=== PATIENT | male | born 1955 | race Two or more races ===

== ENCOUNTER 2017-04-10 21:01 | Inpatient (IN) | payer MEDICARE, OTHER ==
[~2017-04-10] VITALS: Ht 182.9 cm; Wt 93.9 kg
--- NOTE | 2017-04-10 21:05 | NUR ---
TO BED 11 A 62 YO MALE PATIENT BB RA; CHEST PRESSURE X8 HRS. ADMITS TO ETOH DRINKING. NITRO X1 AND 162 ASA GIVEN BY EMS. PATIENT IS ALERT AND RESPONSIVE, PLACED ON CARDIAC AND VS MONITORING. GOWNED. COMFORT AND SAFETY MEASURES RENDERED.
[2017-04-10] MEDS ORDERED: ASPIRIN 325 MG TABLET ONE (21:16)
[2017-04-10 21:20] LABS: BASOPHILS % (AUTO) 0.5 % (0.0-2.0); EOSINOPHILS # (AUTO) 0.2 /CMM (0.0-0.7); EOSINOPHILS % (AUTO) 2.3 % (0.0-6.0); HEMATOCRIT 47 % (39-51); LYMPHOCYTES # (AUTO) 3.4 /CMM (0.8-4.8); MEAN CORPUSCULAR HEMOGLOBIN 31 PG (26.0-33.0); MEAN CORPUSCULAR HGB CONC 34 g/dl (31.0-36.0); MEAN CORPUSCULAR VOLUME 90 fL (80-96); MONOCYTES # (AUTO) 0.5 /CMM (0.1-1.30); MONOCYTES % (AUTO) 5.4 % (2.0-12.0); NEUTROPHILS # (AUTO) 5.2 /CMM (1.8-8.9); NEUTROPHILS % (AUTO) 54.8 % (43.0-81.0); PLATELET COUNT (AUTO) 302 /CMM (150-450); RED BLOOD CELL COUNT(AUTO) 5.18 MIL/uL (4.5-6.0); WHITE BLOOD COUNT (AUTO) 9.3 K/uL (4.3-11.0)
[2017-04-10 21:28] LABS: CALCIUM, SERUM 8.9 mg/dL (8.5-10.1); CARBON DIOXIDE 26 mmol/L (21-32); CHLORIDE 100 mmol/L (98-107); GLUCOSE 279 mg/dL (74-106); POTASSIUM 3.4 mmol/L (3.5-5.1); SODIUM SERUM 136 mmol/L (136-145); UREA NITROGEN, BLOOD 5 mg/dL (7-18)
[2017-04-10] MEDS ORDERED: ASPIRIN 325 MG TABLET PO ONE (21:30)
[2017-04-10 21:32] LABS: INR 0.91 (0.87-1.13); PROTHROMBIN TIME 9.5 SECS (9.5-12.7)
[2017-04-10 21:37] LABS: TROPONIN I < 0.017 ng/mL (0.00-0.056)
--- NOTE | 2017-04-10 23:15 | NUR ---
EPIC PAGED FOR PANEL CALL
--- NOTE | 2017-04-10 23:34 | NUR ---
REPORT GIVEN TO DEDE GREER FOR ADMISSION AND DWAINE.
--- NOTE | 2017-04-10 23:40 | NUR ---
CENTRAL SUPPLY TECHNICIAN SUPERVISOR ADMIN NOTES PT ARRIVED TO FLOOR VIA GURNEY, WAS ABLE TO AMBULATE TO BED. A/O X3, ABLE TO MAKE NEEDS KNOWN. RWANDAN SPEAKING, UNDERSTANDS SOME FRENCH. PT IS BREATHING EVENLY AND UNLABORED ON RA, NO SIGNS OF SOB OR DISTRESS. DENIES PAIN AT THIS TIME. PT STATES HE TAKES SOME MEDICATIONS AND WILL HAVE SOMEONE BRING THEM TOMORROW. RIGHT FOOT EDEMA NOTED +1, BILATERAL BOTTOM FOOT DRYNESS. PT ORIENTED TO ROOM, URINAL WAS GIVE. AWAITING ORDERS FROM MD. BED IS IN LOW AND LOCKED POSITION, CALL LIGHT WITHIN REACH. WILL CONTINUE TO MONITOR PT.
--- NOTE | 2017-04-10 23:42 | NUR ---
TRANSFERRED PATIENT TO TELE BED 322-2 VIA ALS PROTOCOL, NO INCIDENT NOTED.
[2017-04-11] VITALS (7 sets, daily range): BP systolic 103–135; BP diastolic 63–77
[2017-04-11] MEDS ORDERED: ZOLPIDEM TARTRATE 5 MG TABLET PO PRN (01:00)
[2017-04-11] MEDS ORDERED: ACETAMINOPHEN 325 MG TABLET PO PRN (01:00)
[2017-04-11] MEDS ORDERED: ONDANSETRON HCL/PF 4 MG/2 ML VIAL IVP PRN (01:00)
[2017-04-11] MEDS ORDERED: POTASSIUM CHLORIDE 20 MEQ TAB.PRT.SR PO ONE ×2 (01:00→01:10)
[2017-04-11] MEDS ORDERED: MAGNESIUM HYDROXIDE 30 ML UDC PO PRN (01:00)
[2017-04-11] MEDS ORDERED: DEXTROSE 50%-WATER 50 ML DISP.SYRIN IV PRN (01:00)
[2017-04-11] MEDS ORDERED: Z GUARD REMEDY 2 OZ OINT TP PRN (01:00)
[2017-04-11] MEDS ORDERED: HYDROCODONE/APAP 5/325MG 1 EACH TABLET PO PRN (01:00)
[2017-04-11] MEDS ORDERED: ENOXAPARIN SODIUM 40 MG/0.4 ML DISP.SYRIN SQ ONE (01:11)
[2017-04-11] MEDS: ENOXAPARIN SODIUM 40 MG/0.4 ML DISP.SYRIN SQ SCH (01:48)
[2017-04-11 04:19] LABS: BASOPHILS % (AUTO) 0.2 % (0.0-2.0); EOSINOPHILS # (AUTO) 0.2 /CMM (0.0-0.7); EOSINOPHILS % (AUTO) 2.8 % (0.0-6.0); HEMATOCRIT 43 % (39-51); HEMOGLOBIN 14.8 g/dL (13.5-17.5); LYMPHOCYTES # (AUTO) 2.3 /CMM (0.8-4.8); LYMPHOCYTES % (AUTO) 34.5 % (20.0-44.0); MEAN CORPUSCULAR HEMOGLOBIN 32 PG (26.0-33.0); MEAN CORPUSCULAR HGB CONC 35 g/dl (31.0-36.0); MEAN CORPUSCULAR VOLUME 92 fL (80-96); MONOCYTES # (AUTO) 0.4 /CMM (0.1-1.30); MONOCYTES % (AUTO) 5.7 % (2.0-12.0); NEUTROPHILS # (AUTO) 3.8 /CMM (1.8-8.9); NEUTROPHILS % (AUTO) 56.8 % (43.0-81.0); PLATELET COUNT (AUTO) 250 /CMM (150-450); RDW COEFFICIENT OF VARIATION 13.4 (11.5-15.0); RED BLOOD CELL COUNT(AUTO) 4.65 MIL/uL (4.5-6.0); WHITE BLOOD COUNT (AUTO) 6.7 K/uL (4.3-11.0)
[2017-04-11 04:37] LABS: CALCIUM, SERUM 8.3 mg/dL (8.5-10.1); CREATININE 0.9 mg/dL (0.6-1.3); MAGNESIUM 1.7 mg/dL (1.8-2.4); PHOSPHORUS 3.4 mg/dL (2.5-4.9); POTASSIUM 3.6 mmol/L (3.5-5.1)
[2017-04-11] MEDS: BLOOD SUGAR DIAGNOSTIC 1 EACH STRIP IN SCH ×4 (06:34→21:42)
--- NOTE | 2017-04-11 06:40 | NUR ---
SYSTEMS ACCOUNTANT CLOSING NOTES PT IS IN BED SLEEPING, EASILY AROUSED. BREATHING EVENLY AND UNLABORED ON 2L NC. NO SIGNS OF SOB OR DISTRESS. REFUSED INSULIN THIS MORNING. DENIES PAIN AT THIS TIME. NPO UNTIL CARDIAC CONSULT. BED IS IN LOW AND LOCKED POSITION, CALL LIGHT WITHIN REACH. WILL ENDORSE TO DAYSHIFT.
[2017-04-11] MEDS ORDERED: CARV6.252 PO (07:56)
[2017-04-11] MEDS ORDERED: ASPI-1169 PO (07:56)
[2017-04-11] MEDS ORDERED: METF10002 PO (07:56)
[2017-04-11] MEDS ORDERED: ATOR40TA PO (07:56)
[2017-04-11] MEDS ORDERED: OMEP20CA10 PO (07:56)
[2017-04-11] MEDS ORDERED: OMEG-167 PO (07:56)
[2017-04-11] MEDS ORDERED: LISI-607 PO (07:56)
[2017-04-11] MEDS ORDERED: ISOS40TA16 PO (07:58)
[2017-04-11] MEDS ORDERED: ISOS20TA8 PO (07:58)
[2017-04-11] MEDS ORDERED: ATORVASTATIN 40 MG TABLET PO SCH (08:20)
[2017-04-11] MEDS ORDERED: Medication Not On Formulary EA (Omeprazole 20 MG) PO SCH (08:30)
[2017-04-11 08:51] LABS: THYROID STIMULATING HORMONE 0.338 uIU/mL (0.358-3.74)
[2017-04-11] MEDS: LISINOPRIL (5MG) 5 MG TABLET PO SCH (08:52)
[2017-04-11] MEDS: METFORMIN 500 MG TABLET PO SCH ×2 (08:53→17:10)
[2017-04-11] MEDS: ISOSORBIDE MONONITRATE 20 MG TABLET PO SCH (08:53)
[2017-04-11] MEDS: ASPIRIN 81 MG TAB.CHEW PO SCH (08:53)
[2017-04-11] MEDS: CARVEDILOL 6.25 MG TABLET PO SCH ×2 (08:53→17:10)
[2017-04-11] MEDS: PANTOPRAZOLE 40 MG TABLET.DR PO SCH (08:53)
[2017-04-11] MEDS ORDERED: Medication Not On Formulary EA (Omega-3 Fatty Acids/Fish Oil (Fish Oil 1,000 Mg Softgel) PO SCH (09:00)
[2017-04-11] MEDS ORDERED: ASPIRIN 81 MG TAB.CHEW PO SCH (09:00)
[2017-04-11] MEDS: Magnesium 1GM/D5W 100ML PREMIX 100 ML IV SCH ×2 (12:15→13:23)
[2017-04-11] MEDS: INSULIN REGULAR, HUMAN 100 UNIT/ML 3 ML VIAL SQ PRN ×2 (12:17→17:12)
[2017-04-11] MEDS ORDERED: ISOSORBIDE DINITRATE (20MG) 20 MG TABLET PO SCH (18:00)
--- NOTE | 2017-04-11 18:21 | NUR ---
NO SIGNIFICANT CHANGES IN PATIENT CONDITION THROUGHOUT THE SHIFT. NO SOB OR DISTRESS NOTED AT THIS TIME. PATIENT DENIES PAIN. BED IN A LOW POSITION, CALL LIGHT WITHIN PATIENT REACH. WILL ENDORSE FOR DWAINE.
--- NOTE | 2017-04-11 19:35 | NUR ---
RN OPENING NOTES RECEIVED REPORT FROM JOSEFINAWAHELADIO FARRELL. FOUND Pt AWAKE, RESTING IN BED. FAMILY VISITING AT BEDSIDE. NO S/S OF ACUTE DISTRESS OR SOB NOTED. NO C/O CP AT THIS TIME. Pt IS A/OX4, BURMESE SPEAKING, WITH LITTLE ARABIC, VERBAL, ABLE TO MAKE NEEDS KNOWN. IV ACCESS ON L WRIST #20G, SL. SAFETY MEASURES IN PLACE. BED LOW, LOCKED, HOB ELEVATED, SIDE RAILS UP, CALL LIGHT AND BEDSIDE TABLE WITHIN REACH. WILL CONTINUE TO MONITOR Pt THROUGHOUT THE NIGHT FOR SAFETY.
--- NOTE | 2017-04-11 21:58 | NUR ---
HS ACCUCHECK 157. NO INSULIN COVERAGE GIVEN DUE TO Pt's NPO STATUS STARTING AT [facility] FOR STRESS TEST IN THE AM TOMORROW.
[2017-04-12] MEDS: ENOXAPARIN SODIUM 40 MG/0.4 ML DISP.SYRIN SQ SCH (00:59)
[2017-04-12] MEDS: PANTOPRAZOLE 40 MG TABLET.DR PO SCH (06:29)
[2017-04-12] MEDS: BLOOD SUGAR DIAGNOSTIC 1 EACH STRIP IN SCH (06:29)
--- NOTE | 2017-04-12 06:31 | NUR ---
AC ACCUCHECK BG 209. NO INSULIN COVERAGE GIVEN AT THIS TIME DUE TO NPO STATUS FOR STRESS TEST
[2017-04-12 06:44] LABS: BASOPHILS % (AUTO) 0.5 % (0.0-2.0); EOSINOPHILS # (AUTO) 0.3 /CMM (0.0-0.7); EOSINOPHILS % (AUTO) 3.2 % (0.0-6.0); HEMATOCRIT 46 % (39-51); HEMOGLOBIN 15.8 g/dL (13.5-17.5); LYMPHOCYTES # (AUTO) 2.4 /CMM (0.8-4.8); LYMPHOCYTES % (AUTO) 28.2 % (20.0-44.0); MEAN CORPUSCULAR HEMOGLOBIN 32 PG (26.0-33.0); MEAN CORPUSCULAR HGB CONC 35 g/dl (31.0-36.0); MEAN CORPUSCULAR VOLUME 92 fL (80-96); MONOCYTES # (AUTO) 0.5 /CMM (0.1-1.30); MONOCYTES % (AUTO) 5.5 % (2.0-12.0); NEUTROPHILS # (AUTO) 5.2 /CMM (1.8-8.9); NEUTROPHILS % (AUTO) 62.6 % (43.0-81.0); PLATELET COUNT (AUTO) 285 /CMM (150-450); RDW COEFFICIENT OF VARIATION 12.2 (11.5-15.0); RED BLOOD CELL COUNT(AUTO) 4.97 MIL/uL (4.5-6.0); WHITE BLOOD COUNT (AUTO) 8.4 K/uL (4.3-11.0)
--- NOTE | 2017-04-12 06:50 | NUR ---
RN CLOSING NOTES NO SIGNIFICANT CHANGES IN Pt's CONDITION. Pt REMAINS STABLE AT THIS TIME. NO S/S OF ACUTE DISTRESS OR SOB NOTED DURING THE NIGHT. ALL NEEDS MET AND ATTENDED TO. HAS BEEN NPO SINCE JERRY SINGH FOR STRESS TEST IN THE AM. SAFETY MEASURES IN PLACE. WILL ENDORSE TO DAYSHIFT RN FOR Pt's DWAINE.
[2017-04-12 07:08] LABS: TROPONIN I < 0.017 ng/mL (0.00-0.056)
[2017-04-12 07:13] LABS: CARBON DIOXIDE 27 mmol/L (21-32); CHLORIDE 104 mmol/L (98-107); POTASSIUM 3.9 mmol/L (3.5-5.1); SODIUM SERUM 142 mmol/L (136-145)
[2017-04-12 07:14] LABS: ALANINE AMINOTRANSFERASE 88 U/L (12-78); ALBUMIN 3.7 g/dL (3.4-5.0); ALKALINE PHOSPHATASE 57 U/L (46-116); ASPARTATE AMINOTRANSFERASE 47 U/L (15-37); BILIRUBIN,TOTAL 0.7 mg/dL (0.2-1.0); CREATININE 1.1 mg/dL (0.6-1.3); GLUCOSE 177 mg/dL (74-106); PHOSPHORUS 2.8 mg/dL (2.5-4.9); TOTAL PROTEIN, SERUM 7.6 g/dL (6.4-8.2); UREA NITROGEN, BLOOD 14 mg/dL (7-18)
--- NOTE | 2017-04-12 07:30 | NUR ---
RN MS NOTES PT IN BED, AWAKE, ALERT AND ORIENTED, NO COMPLAINT OF PAIN, BREATHING PATTERN NORMAL AND NOT LABORED, CALL LIGHT WITHIN REACH, FOR STRESS TEST TODAY, PT INFORMED.
[2017-04-12 08:00] VITALS: BP 117/73
[2017-04-12] MEDS ORDERED: REGADENOSON 0.4 MG/5 ML DISP.SYRIN IVP ONE (08:20)
[2017-04-12] MEDS: ISOSORBIDE MONONITRATE 20 MG TABLET PO SCH (09:00)
[2017-04-12] MEDS: LISINOPRIL (5MG) 5 MG TABLET PO SCH (09:00)
[2017-04-12] MEDS: ASPIRIN 81 MG TAB.CHEW PO SCH (10:09)
[2017-04-12] MEDS: METFORMIN 500 MG TABLET PO SCH (10:09)
[2017-04-12 10:12] VITALS: BP 117/73
[2017-04-12] MEDS: CARVEDILOL 6.25 MG TABLET PO SCH (10:12)
--- NOTE | 2017-04-12 11:51 | NUR ---
RN MS NOTES PT COMPLETED STRESS TEST, TOLERATED WELL, INFORMED OF RESULTS, SEEN BY SANJAY MCKENZIE, DISCHARGE ORDER GIVEN, DISCHARGE AND MEDICATION INSTRUCTIONS PROVIDED TO PT, VERBALIZED UNDERSTANDING.
--- NOTE | 2017-04-12 13:15 | NUR ---
RN MS NOTES PT IN BED, AWAKE, ALERT AND ORIENTED, NO COMPLAINT OF PAIN OR ANT DISCOMFORT, RESPIRATIONS NORMAL, ABLE TO AMBULATE IN THE ROOM WITH STEADY GAIT, DISCHARGE AND MEDICATION INSTRUCTIONS PROVIDED TO PT AND FAMILY, VERBALIZED UNDERSTANDING, BELONGINGS ACCOUNTED FOR, LEFT WITH FAMILY MEMBERS IN STABLE CONDITION.
== END 2017-04-12 13:18 | disposition home or self-care (01) | DRG 206 ==
LOC: ER 21:07 → TELE 23:25 → MED 04-11 10:30
PROVIDERS: ADMIT Nurse Practitioner Acute Care; ATTEND Nurse Practitioner Acute Care
DX: M94.0 Chondrocostal junction syndrome [Tietze] (principal); E11.65 Type 2 diabetes mellitus with hyperglycemia; I25.10 Atherosclerotic heart disease of native coronary artery without angina pectoris; E83.42 Hypomagnesemia; I10 Essential (primary) hypertension; E87.6 Hypokalemia; I25.2 Old myocardial infarction; Z98.61 Coronary angioplasty status; E05.90 Thyrotoxicosis, unspecified without thyrotoxic crisis or storm; Z79.84 Long term (current) use of oral hypoglycemic drugs
CPT/HCPCS: 36415; 71010-TC; 80048-TC; 80053-TC; 80061-TC; 82306; 82962-TC; 83735-TC; 84100-TC; 84439-TC; 84443-TC; 84484-TC; 85025-TC; 85730-TC; 93307-TC; A4606; A9502; J1650; J1815; J2785; J3475; Z7610

== ENCOUNTER 2019-08-17 16:36 | Inpatient (IN) | payer MEDICARE, OTHER ==
[~2019-08-17] VITALS: Ht 182.9 cm; Wt 85.3 kg
[~2019-08-17 16:36] MED LIST: ASPI-1169 PO; ATOR40TA PO; CARV6.252 PO; ISOS20TA8 PO; ISOS40TA16 PO; LISI-607 PO; METF-442 PO; OMEG-167 PO; OMEP20CA15 PO
[2019-08-17] MEDS ORDERED: ACETAMINOPHEN 325 MG TABLET PO ONE (17:00)
[2019-08-17] MEDS ORDERED: ACETAMINOPHEN 325 MG TABLET ONE (17:16)
--- NOTE | 2019-08-17 17:27 | NUR ---
YVONNE FROM HOME TO ER BED 7. AAOX4. NOT IN RESP DISTRESS. BROUGHT IN FOR CHEST PAIN. PER PT. LOCATION IS ON L CHEST, NON RADIATING AND AGGREVATED BY COUGHING. PT RTEPORTS THAT HE JUST FINISHED ATB FOR PNA YESTERDAY AND REPORTS THAT HE IS POSITIVE FOR COVID. PT REPORT NAUSEA WELL. MD WAS AT BEDSIDE FOR EVAL. ORDERS RECEIVED NOTED AND CARRIED OUT. IV LINE OBTAINED ON L AC 18G. BLOOD DRAWN AND GIVEN TO ELECTRICAL TESTER AT BEDSIDE. PT ON MONITOR. WILL CONTINUE TO MONITOR PT.
--- NOTE | 2019-08-17 17:28 | NUR ---
PT PLACED ON O2 VIA NC @ 2LPM D/T NOTED O2 SAT @ 92% ON RA
[2019-08-17 17:33] LABS: BASOPHILS % (AUTO) 0.2 % (0.0-2.0); EOSINOPHILS % (AUTO) 0.1 % (0.0-6.0); HEMATOCRIT 45 % (39-51); HEMOGLOBIN 15.5 g/dL (13.5-17.5); LYMPHOCYTES % (AUTO) 15.8 % (20.0-44.0); MEAN CORPUSCULAR HGB CONC 35 g/dl (31.0-36.0); MEAN CORPUSCULAR VOLUME 91 fL (80-96); MONOCYTES # (AUTO) 0.3 /CMM (0.1-1.30); MONOCYTES % (AUTO) 4.8 % (2.0-12.0); NEUTROPHILS % (AUTO) 79.1 % (43.0-81.0); PLATELET COUNT (AUTO) 205 /CMM (150-450); RED BLOOD CELL COUNT(AUTO) 4.94 MIL/uL (4.5-6.0); WHITE BLOOD COUNT (AUTO) 6.3 K/uL (4.3-11.0)
[2019-08-17 17:40] LABS: CALCIUM, SERUM 8.8 mg/dL (8.5-10.1); CREATININE 1.1 mg/dL (0.6-1.3); POTASSIUM 4.3 mmol/L (3.5-5.1)
[2019-08-17] MEDS ORDERED: CEFTRIAXONE 1 G in IV D5W 50 ML IV ONE (18:30)
[2019-08-17] MEDS ORDERED: AZITHROMYCIN 500 MG in IV D5W 250 ML IV ONE (18:30)
--- NOTE | 2019-08-17 19:34 | NUR ---
DR. CARLOS SOTO
--- NOTE | 2019-08-17 20:46 | NUR ---
BED ASSIGNMENT 111-2
--- NOTE | 2019-08-17 21:30 | NUR ---
SPOKE WITH SAM PEOPLES COMMUNITY SERVICE WORKER FOR CLINICAL UPDATES.
--- NOTE | 2019-08-17 21:38 | NUR ---
AUGUSTINE SWAB COLLECTED AND SENT TO LAB
--- NOTE | 2019-08-17 22:45 | NUR ---
REPORT GIVEN TO ZOEY DOUGLAS FOR DWANIE. TO 111-2
--- NOTE | 2019-08-17 22:46 | NUR ---
pt noted with temp of 102.2. md made aware. verbal order to give tylenol 100mg pox 1. noted and carried out
[2019-08-17] MEDS ORDERED: ISOS30TA6 PO (22:47)
[2019-08-17] MEDS ORDERED: METF-440 PO (22:47)
[2019-08-17] MEDS ORDERED: CARV12.5 PO (22:47)
[2019-08-17] MEDS ORDERED: LISI-607 PO (22:47)
[2019-08-17] MEDS ORDERED: RANO500T3 PO (22:47)
[2019-08-17] MEDS ORDERED: OMEP20CA15 PO (22:47)
[2019-08-17] MEDS ORDERED: ACETAMINOPHEN ES 500 MG TABLET ONE (22:47)
[2019-08-17 23:00] VITALS: BP 130/79
[2019-08-17] MEDS ORDERED: ACETAMINOPHEN ES 500 MG TABLET PO PRN (23:00)
--- NOTE | 2019-08-17 23:00 | NUR ---
RN NOTES, RECEIVED 64YO MALE AT 1055 FROM ER DEPARTMENT VIA STRETCHER, ACCOMPANIED BY 2 NURSES, UNDER MEDICAL SERVICES OF DR NAVARRETE, WITH ADMITTING DX COVID 19 AND PNA, PATIENT A/O X4 KOSOVAN SPEAKING, NO SOB/RESPIRATORY DISTRESS NOTED AT THIS TIME, ATTACHED TO TELE MONITOR NSR WITH HR 90S AT THIS TIME, LEFT AC PIV ACCESS PATENT AND INTACT, AFEBRILE AT THIS TIME, POSITIVE COVID OUT OF HOSPITAL TESTING, SWAB FOR COVID DONE IN ER AND PENDING RESULTS, VS UPON ADMISSION 130/79, 92, 20, 98.5, 94%, ON 3LMP VIA [place], WILL CONTINUE TO MONITOR CLOSELY, AND FOLLOW UP WITH MD ORDERS.
--- NOTE | 2019-08-17 23:10 | NUR ---
RN NOTES SPOKE WITH DR NAVARRETE ON THE PHONE CONFIRMED ORDERS TO CONTINUE HOME MEDS, ADMIT TO TELE (NOT MEDSURG), ACHS ACCUCHECKS WITH MILD SLIDING SCALE, AND NO NEED FOR FLUIDS SINCE Pt IS A/OX4 AND IS EATING & DRINKING WELL. WILL CARRY OUT ORDERS.
[2019-08-18] MEDS ORDERED: DEXTROSE 50%-WATER 50 ML DISP.SYRIN IV PRN (03:30)
[2019-08-18] MEDS: HYDROXYCHLOROQUINE 200 MG TABLET PO SCH ×2 (06:57→16:15)
--- NOTE | 2019-08-18 07:05 | NUR ---
RN CLOSING NOTES NO SIGNIFICANT CHANGES IN Pt's CONDITION. 1ST DOSE OF PLAQUENIL 400MG GIVEN TODAY @0700. ALL NEEDS MET AND ATTENDED TO. SAFETY MEASURES IN PLACE. TELE READING SR. WILL ENDORSE TO CASS RN FOR Pt's DWAINE.
[2019-08-18] MEDS: BLOOD SUGAR DIAGNOSTIC 1 EACH STRIP VI SCH ×4 (07:17→21:39)
[2019-08-18 07:28] LABS: BASOPHILS % (AUTO) 0.2 % (0.0-2.0); HEMATOCRIT 43 % (39-51); HEMOGLOBIN 15.1 g/dL (13.5-17.5); LYMPHOCYTES # (AUTO) 1.1 /CMM (0.8-4.8); LYMPHOCYTES % (AUTO) 17.3 % (20.0-44.0); MEAN CORPUSCULAR HGB CONC 35 g/dl (31.0-36.0); MEAN CORPUSCULAR VOLUME 90 fL (80-96); MONOCYTES # (AUTO) 0.3 /CMM (0.1-1.30); MONOCYTES % (AUTO) 4.3 % (2.0-12.0); NEUTROPHILS # (AUTO) 5.2 /CMM (1.8-8.9); NEUTROPHILS % (AUTO) 78.2 % (43.0-81.0); PLATELET COUNT (AUTO) 213 /CMM (150-450); RED BLOOD CELL COUNT(AUTO) 4.77 MIL/uL (4.5-6.0); WHITE BLOOD COUNT (AUTO) 6.6 K/uL (4.3-11.0)
[2019-08-18 07:30] LABS: CALCIUM, SERUM 8.6 mg/dL (8.5-10.1); POTASSIUM 4.2 mmol/L (3.5-5.1)
--- NOTE | 2019-08-18 07:35 | NUR ---
Tele/RN - Assessment Patient is awake, A/O x 4, no complaints overnight, uses supplemental oxygen 3lpm via NC, saturating well, no SOB/respiratory distress, denies pain at this time, tele shows SR. Skin is intact. Patient is ambulatory with steady gait. Contact and droplet precautions maintained for r/o Covid-19. Will continue with current medical management.
[2019-08-18] MEDS: PANTOPRAZOLE 40 MG TABLET.DR PO SCH (07:48)
[2019-08-18 08:00] VITALS: BP 107/69
[2019-08-18] MEDS ORDERED: ZOLPIDEM TARTRATE 5 MG TABLET PO PRN (08:30)
[2019-08-18] MEDS: CARVEDILOL 12.5 MG TABLET PO SCH (08:32)
[2019-08-18] MEDS: METFORMIN 500 MG TABLET PO SCH (08:33)
[2019-08-18] MEDS: ISOSORBIDE MONONITRATE (30MG) 30 MG TAB.SR.24H PO SCH ×2 (08:33→16:14)
[2019-08-18] MEDS: LISINOPRIL (5MG) 5 MG TABLET PO SCH (08:33)
[2019-08-18] MEDS: INSULIN REGULAR, HUMAN 100 UNIT/ML 3 ML VIAL SQ PRN ×3 (08:35→17:22)
[2019-08-18 08:55] LABS: MAGNESIUM 2.1 mg/dL (1.8-2.4)
[2019-08-18 09:00] LABS: CHOLESTEROL 167 mg/dL (<200); HDL CHOLESTEROL 41 mg/dL (40-60); LDL 114 mg/dL (0-99); TRIGLYCERIDES 136 mg/dL (30-150)
[2019-08-18] MEDS ORDERED: OMEPRAZOLE 20 MG CAPSULE.DR PO SCH (09:00)
[2019-08-18] MEDS: ENOXAPARIN SODIUM 40 MG/0.4 ML DISP.SYRIN SQ SCH (09:17)
[2019-08-18 10:09] LABS: ALBUMIN 3.3 g/dL (3.4-5.0); BILIRUBIN,DIRECT 0.1 mg/dL (0.0-0.2); BILIRUBIN,TOTAL 0.5 mg/dL (0.2-1.0); TOTAL PROTEIN, SERUM 7.8 g/dL (6.4-8.2)
[2019-08-18] MEDS: ACETAMINOPHEN 325 MG TABLET PO PRN ×2 (10:39→20:48)
[2019-08-18 12:23] VITALS: BP 69/36
[2019-08-18 15:49] VITALS: BP 95/58
[2019-08-18] MEDS ORDERED: ONDANSETRON HCL/PF 4 MG/2 ML VIAL IV PRN (17:00)
--- NOTE | 2019-08-18 18:59 | NUR ---
Tele/RN - End of shift summary No significant change in condition seen, on 3lpm via NC, SpO2 90-92%, remain afebrile, tele shows SR, QTc 340. Patient tested positive for Covid-19, relayed to Natasha Mckay DNP. Plan of care discussed with ness Powell and in agreement.
--- NOTE | 2019-08-18 19:05 | NUR ---
Tele/RN - Assessment report recieved from ezio lang. Patient is awake, A/O x 4 senegalese speakin only, uses supplemental oxygen 3lpm via NC, denies SOB/respiratory distress, reports pain while breathing in chest rated 3/10 reviewed pain management plan with patient. tele shows SR. ambulatory with steady gait per report. Contact and droplet precautions maintained positive Covid-19. Will continue with current medical management. will cont to monitor.
[2019-08-18 20:00] VITALS: BP 95/61
[2019-08-18] MEDS: *INSULIN REGULAR(HUMULIN R)HUM 100 UNIT/ML VIAL SQ PRN (21:36)
--- NOTE | 2019-08-18 23:22 | NUR ---
alyson emergency contact called patient stated it was ok to discuss medical treatment with her. per shelley quintana. as scalping machine operator. alyson and markusdeted on patient condition and revied recent labs and precribed medication. states she is going to call and try to speak with dr. rainey tomorrow about current treatments. phone alyson [phone]
[2019-08-19] VITALS (13 sets, daily range): BP systolic 91–115; BP diastolic 58–79
--- NOTE | 2019-08-19 00:22 | NUR ---
c/o pain, seen in room with eyes closed. per shelley quintana patient was complainig of pain to chest rated 8/10 . during midnight vital signs went into see patient. and he is resting in bed with nc at 5lnc seen with eyes closed. not aroused by soft voice breathing even and unlabored. will cont to monitor. pt is sr at 66 at the moment. per tele monitoring.
[2019-08-19] MEDS: ACETAMINOPHEN 325 MG TABLET PO PRN ×2 (04:05→16:42)
[2019-08-19 06:53] LABS: BASOPHILS % (AUTO) 0.2 % (0.0-2.0); EOSINOPHILS % (AUTO) 0.1 % (0.0-6.0); HEMATOCRIT 40 % (39-51); HEMOGLOBIN 14.2 g/dL (13.5-17.5); LYMPHOCYTES % (AUTO) 15.3 % (20.0-44.0); MEAN CORPUSCULAR HGB CONC 35 g/dl (31.0-36.0); MEAN CORPUSCULAR VOLUME 89 fL (80-96); MONOCYTES # (AUTO) 0.4 /CMM (0.1-1.30); MONOCYTES % (AUTO) 6.3 % (2.0-12.0); NEUTROPHILS % (AUTO) 78.1 % (43.0-81.0); PLATELET COUNT (AUTO) 255 /CMM (150-450); RED BLOOD CELL COUNT(AUTO) 4.52 MIL/uL (4.5-6.0); WHITE BLOOD COUNT (AUTO) 6.5 K/uL (4.3-11.0)
[2019-08-19 07:08] LABS: CALCIUM, SERUM 8.5 mg/dL (8.5-10.1); CREATININE 1.2 mg/dL (0.6-1.3); POTASSIUM 3.8 mmol/L (3.5-5.1)
--- NOTE | 2019-08-19 07:58 | NUR ---
SLAB CONDITIONER SUPERVISOR OPENING NOTES RECEIVED PATIENT IN BED, ASLEEP. PATIENT IS ON OXYGEN THERAPY AT 5 LPM; BREATHING IS EVEN AND UNLABORED AT THIS TIME. NO SIGNS OF PAIN SUCH FACIAL GRIMACING, GUARDING OR MOANING AT THIS TIME. EXTERNAL CARPENTER HELPER MAINTENANCE ATTACHED WITH A READING OF SR 71. LAC SL GAUGE # 18 IV ACCESS PRESENT AND INTACT. SAFETY PRECAUTIONS IN PLACE; BED IN LOW POSITION AND LOCKED, RAILS UP X2, CALL LIGHT WITHIN REACH. WILL CONTINUE TO MONITOR PATIENT.
[2019-08-19] MEDS: METFORMIN 500 MG TABLET PO SCH (08:12)
[2019-08-19] MEDS: PANTOPRAZOLE 40 MG TABLET.DR PO SCH (08:12)
[2019-08-19] MEDS: ISOSORBIDE MONONITRATE (30MG) 30 MG TAB.SR.24H PO SCH ×2 (08:13→17:00)
[2019-08-19] MEDS: CARVEDILOL 12.5 MG TABLET PO SCH (08:14)
[2019-08-19] MEDS: LISINOPRIL (5MG) 5 MG TABLET PO SCH (08:14)
[2019-08-19] MEDS: ENOXAPARIN SODIUM 40 MG/0.4 ML DISP.SYRIN SQ SCH (08:15)
[2019-08-19] MEDS: BLOOD SUGAR DIAGNOSTIC 1 EACH STRIP VI SCH ×4 (08:20→21:54)
[2019-08-19] MEDS: INSULIN REGULAR, HUMAN 100 UNIT/ML 3 ML VIAL SQ PRN ×3 (08:34→17:54)
[2019-08-19] MEDS ORDERED: HYDROXYCHLOROQUINE 200 MG TABLET PO SCH (09:00)
--- NOTE | 2019-08-19 11:55 | NUR ---
PHARMACOGNOSIST NOTES PATIENT ON OXYGEN THERAPY AT 5 LPM STARTED TO HAVE DIFFICULTY BREATHING. CHECKED HIS O2 AGAIN AGTMIGUEL MANAGER TRANSPORTATION TOOK HIS VITAL SIGNS, AND HIS O2 WAS 83%. PUT A FACE MASK ON AT INCREASED O2 TO 6L. O2 WENT UP TO 86%. CONTACTED DR WIGGINS. PER MD WAS INSTRUCTED TO PLACE THE PATIENT ON A NON-REBREATHER MASK. PATIENT ON NON-REBREATHER AT 15 LPM WAS SATURATING AT 97%. RT WAS CALLED AND ABG STAT ORDERED. PATIENT REMAINS ON NON-REBREATHER MASK AND ABG RESULTS WERE SENT TO DR. CUELLAR. WILL CONTINUE TO MONITOR.
--- NOTE | 2019-08-19 12:52 | NUR ---
PATIENT ABG RELAYED TO DR. MILTON AND RT MADE AWARE.PRIMARY RN INSTRUCTED PATIENT TO DO PRONE POSITION.
--- NOTE | 2019-08-19 12:53 | NUR ---
WORKERS COMPENSATION ANALYST NOTES PER DR CUELLAR, INSTRUCTED TO PLACE THE PATIENT IN PRONE POSITION.
--- NOTE | 2019-08-19 12:55 | NUR ---
WILL CONTINUE TO MONITOR ON NON REBREATHER FOR NOW PER DR. MILTON SINCE HIGH FLOW NOT AVAILBLE.
--- NOTE | 2019-08-19 13:00 | NUR ---
DATA MINING ANALYST NOTES PER PATIENT HE DOES NOT WANT TO BE IN PRONE POSITION AT THIS TIME. HE HAD SOME SHOULDER FRACTURE BEFORE AND IT IS BOTHERING HIM. HE WILL TRY TO TAKE PRONE POSITION LATER IN THE DAY. PATIENT WAS EXPLAINED THE BENEFITS OF THE PRONE POSITION BUT HE STILL REFUSED.
--- NOTE | 2019-08-19 13:11 | NUR ---
PATIENT PLACED BY RT ON HIGH FLOW OXYGEN WILL CONTINUE TO MONITOR.
[2019-08-19] MEDS: RANOLAZINE 500 MG TAB.ER.12H PO SCH (13:25)
--- NOTE | 2019-08-19 13:49 | NUR ---
PER RT PT. PLACED BACK ON NONREBREATHER SINCE HIGH FLOW HEATER NEED TO BE CHECK BY BIOMED.PATIENT SAT 100% ON NONREBREATHER DR. MILTON SEEN AND EXAMINED PATIENT OK WITH NONREBREATHER FOR NOW. WILL CONTINUE TO MONITOR.
--- NOTE | 2019-08-19 14:25 | NUR ---
CLINICAL TRIAL ASSISTANT NOTES PER DR NAVARRETE, FAMILY REQUESTED TO STOP GIVING PLAQUENIL TO PATIENT. DR WILL DISCONTINUE MEDICATION.
--- NOTE | 2019-08-19 15:02 | NUR ---
CLIP ON SUNGLASSES INSPECTOR NOTES PER MD ORDER PATIENT TRANSFERRED TO ICU (ICU OVERFLOW) ROOM 102-1. REPORT GIVEN TO [facility].
[2019-08-19] MEDS: methylPREDNISolone SOD SUCC 40 MG/ML VIAL IV SCH (15:51)
--- NOTE | 2019-08-19 16:05 | NUR ---
research agricultural engineer note RT at bedside, patient placed on high flow 50lpm 50% spo2 90%. will continue to monitor.
--- NOTE | 2019-08-19 16:08 | NUR ---
agriculture scientist note seen and examined by dr muir on high flow 50l 50% with spo2 90%. with orders to increase oxygen 60lpm 100% and prone, rt with assist with translation.
--- NOTE | 2019-08-19 16:31 | NUR ---
RT NOTE PT PLACED ON HI VAL NASAL CANNULA PER MD PELEG ORDER. 60L 100% PER MD PELEG VERBAL ORDER. ZOEY MUHAMMAD AWARE. PT AWAKE AND ALERT. NO DISTRESS NOTED. PT INSTRUCTED ABOUT REQUIRED SPUTUM SAMPLE. LABELED CUP LEFT AT BED SIDE. PT AWAKE AND ALERT. NO DISTRESS NOTED AT MOMENT. ZOEY MUHAMMAD NOTIFIED.
[2019-08-19] MEDS ORDERED: FEE PK DOSING 1 MIN EA MC ONE (16:53)
[2019-08-19] MEDS ORDERED: VANCOMYCIN 1.25 GM in IV D5W 250 ML IV SCH (17:00)
[2019-08-19] MEDS ORDERED: diphenhydrAMINE HCL 25 MG CAPSULE PO ONE (17:00)
[2019-08-19] MEDS: VANCOMYCIN 1.25 GM in IV D5W 250 ML IV SCH (17:58)
[2019-08-19] MEDS ORDERED: TOCILIZUMAB 400 MG in IV NS 0.9% 80 ML IV ONE (18:00)
--- NOTE | 2019-08-19 19:34 | NUR ---
RN OPENING NOTES: Received pt awake in bed. On isolation precautions for positive Covid. On high flow O2 15LPM, sating well. No respiratory distress or SOB noted. Pt A&Ox4, Lithuanian speaking. On tele monitor showing SR. IV site on RH #20 and LAC #18 patent and flushing. Dressings c/d/i. Safety measures in place. Will continue to monitor.
--- NOTE | 2019-08-19 19:45 | NUR ---
RT NOTES PT RECEIVED ON HIGH FLOW NASAL CANNULA @ 100% 60 LPM. PT AWAKE/ALERT. WATER LEVEL GOOD. WILL CONTINUE TO MONITOR T/O SHIFT. NO DISTRESS NOTED AT THIS TIME. MONITOR @ BEDSIDE. Addendum: 08/20/19 at 0326 by JONATAN CORRIGAN RT Amended: Links added.
[2019-08-19] MEDS: CEFEPIME 2 GM in IV D5W 100 ML IV SCH (20:03)
[2019-08-19] MEDS: DOXYCYCLINE 100 MG in IV NS 0.9% 100 ML IV SCH (21:38)
[2019-08-19] MEDS: *INSULIN REGULAR(HUMULIN R)HUM 100 UNIT/ML VIAL SQ PRN (21:53)
[2019-08-19] MEDS ORDERED: INSULIN GLARGINE, 100 UNIT/ML CARTRIDGE SQ SCH (22:00)
[2019-08-20] VITALS (31 sets, daily range): BP systolic 92–135; BP diastolic 47–83
[2019-08-20] MEDS: CEFEPIME 2 GM in IV D5W 100 ML IV SCH ×3 (01:03→17:31)
--- NOTE | 2019-08-20 01:45 | NUR ---
RN NOTE: Pt noted w/ episode of desaturation. Placed pt in high Dove's and changed location of O2 monitor. O2 increased to 92-93%. RT at bedside. Angel Morrison NP made aware and said continue to monitor. Will continue to monitor.
[2019-08-20] MEDS: VANCOMYCIN 1.25 GM in IV D5W 250 ML IV SCH ×2 (04:47→17:30)
--- NOTE | 2019-08-20 05:33 | NUR ---
RN NOTE: Pt noted w/ episode of desaturation down to 86%. Elevated HOB and changed pulse ox position again. Educated pt on taking in deep breaths. O2 sat maintaining at 88-89%. Angel Morrison NP paged. Gave orders for stat ABG and to cancel the 0800 ABG order. Orders noted and carried out.
--- NOTE | 2019-08-20 06:04 | NUR ---
0604 STAT ABG RESULT RELAYED TO SANJAY DRUMMOND HE SAID HE WILL COME TO SEE PATIENT.
[2019-08-20 06:08] LABS: ABG BASE EXCESS -2.3 mmol/L; ABG OXYGEN SATURATION 92.2 % (92.0-98.5); ABG PCO2 30.3 mmHg (35.0-45.0); ABG PH 7.446 (7.350-7.450); ABG PO2 64.2 mmHg (75.0-100.0); AaDO2 618.5 mmHg; COHb 0.2 % (0.5-1.5); MetHb 0.1 % (0.0-1.5); O2Hb 91.9 % (94.0-97.0); SITE, ABG Right Radial
--- NOTE | 2019-08-20 06:09 | NUR ---
RN NOTE: Angel Morrison NP at bedside, examining pt. Stated pt looks clinically stable. Stated to have pulmonology examine in AM and go from there. Noted. Will endorse to AM nurse.
--- NOTE | 2019-08-20 06:24 | NUR ---
RN CLOSING NOTES: Pt resting in bed, on isolation for positive Covid. On 60LPM high flow O2 at 100%, no respiratory distress or SOB noted at this time. On tele monitor showing SR. IV sites on LAC #18 and RH #20 patent and flushing. Dressings c/d/i. No pain noted at this time. All meds administered as ordered. Safety measures in place. Will endorse to AM nurse for DWAINE.
--- NOTE | 2019-08-20 07:15 | NUR ---
received report from zach GREER for DWAINE. pt resting comfortably in bed 102, on bedside monitor with continuous pulse ox. remains on high flow NC at 60LPM, noted saturation in low 90s however pt does not appear in any distress. pt reports feeling continued shortness of breath. a/ox4, all needs attended to. denies pain at this time. bed locked in lowest position, side rails up x2, bed alarm on. remains on droplet precautions for COVID.
[2019-08-20 07:27] LABS: BASOPHILS % (AUTO) 0.2 % (0.0-2.0); HEMATOCRIT 42 % (39-51); HEMOGLOBIN 14.6 g/dL (13.5-17.5); LYMPHOCYTES # (AUTO) 0.8 /CMM (0.8-4.8); LYMPHOCYTES % (AUTO) 14.2 % (20.0-44.0); MEAN CORPUSCULAR HGB CONC 35 g/dl (31.0-36.0); MEAN CORPUSCULAR VOLUME 89 fL (80-96); MONOCYTES # (AUTO) 0.2 /CMM (0.1-1.30); MONOCYTES % (AUTO) 4.4 % (2.0-12.0); NEUTROPHILS # (AUTO) 4.5 /CMM (1.8-8.9); NEUTROPHILS % (AUTO) 81.2 % (43.0-81.0); PLATELET COUNT (AUTO) 317 /CMM (150-450); RED BLOOD CELL COUNT(AUTO) 4.65 MIL/uL (4.5-6.0); WHITE BLOOD COUNT (AUTO) 5.5 K/uL (4.3-11.0)
[2019-08-20 07:28] LABS: CALCIUM, SERUM 8.7 mg/dL (8.5-10.1); POTASSIUM 4.4 mmol/L (3.5-5.1)
--- NOTE | 2019-08-20 07:49 | NUR ---
RT at bedside for ABG
[2019-08-20 08:09] LABS: C-REACTIVE PROTEIN 17.6 mg/dL (0.0-0.9)
[2019-08-20] MEDS: DOXYCYCLINE 100 MG in IV NS 0.9% 100 ML IV SCH ×2 (08:27→21:07)
[2019-08-20] MEDS: RANOLAZINE 500 MG TAB.ER.12H PO SCH (08:28)
[2019-08-20] MEDS: methylPREDNISolone SOD SUCC 40 MG/ML VIAL IV SCH (08:28)
[2019-08-20] MEDS: PANTOPRAZOLE 40 MG TABLET.DR PO SCH (08:28)
[2019-08-20] MEDS: METFORMIN 500 MG TABLET PO SCH (08:28)
[2019-08-20] MEDS: CARVEDILOL 12.5 MG TABLET PO SCH (08:29)
[2019-08-20] MEDS: BLOOD SUGAR DIAGNOSTIC 1 EACH STRIP VI SCH ×4 (08:30→22:11)
[2019-08-20] MEDS: ISOSORBIDE MONONITRATE (30MG) 30 MG TAB.SR.24H PO SCH ×2 (08:30→17:38)
[2019-08-20] MEDS: ENOXAPARIN SODIUM 40 MG/0.4 ML DISP.SYRIN SQ SCH (08:31)
[2019-08-20] MEDS: *INSULIN REGULAR(HUMULIN R)HUM 100 UNIT/ML VIAL SQ PRN ×4 (08:39→22:09)
--- NOTE | 2019-08-20 09:20 | NUR ---
dr muir at bedside
--- NOTE | 2019-08-20 10:37 | NUR ---
updated pt's family on pt status. pt placed in prone position at this time. per ness Powell, pt is c/o chest pain. when asked by RN in [place] if pt has any pain, pt denies. will continue to monitor closely and reassess for pain.
--- NOTE | 2019-08-20 12:18 | NUR ---
pt appears somewhat short of breath while sitting up in bed and eating lunch. while resting and lying down pt appears in no respiratory distress, though he continues to feel short of breath. continue 60LPM via high flow cannula.
[2019-08-20] MEDS ORDERED: HYDROXYCHLOROQUINE 200 MG TABLET PO SCH (12:30)
--- NOTE | 2019-08-20 13:10 | NUR ---
per report from [facility] nurse Garcia, pt's family requests no plaquenil. pt agrees with family alyson. will verify with pt and notify Dr Khan regarding new plaquenil order. Addendum: 08/20/19 at 1344 by ALEX ASHTON RN pharmacy to reach out to josefina per order edit
--- NOTE | 2019-08-20 13:40 | NUR ---
pt ambulated to restroom with steady gait, had BM. pt tolerated off high flow NC during ambulation to restroom and while on toilet. resumed high flow NC once back in bed.
--- NOTE | 2019-08-20 13:55 | NUR ---
verified with alyson, no plaquenil. texted shelub.
--- NOTE | 2019-08-20 16:38 | NUR ---
pt resting quietly, NAD noted. asleep, easily arousable, tolerating high flow NC.
--- NOTE | 2019-08-20 19:30 | NUR ---
RN OPENING NOTES: Received pt awake in bed, A&Ox4, Hebrew speaking. On isolation for positive Covid. On tele monitor reading SR. On high flow O2 at 60LPM at 100%. No respiratory distress or SOB noted. Pt tolerating well. IV sites on LAC #18 and RH #20 patent and flushing. Dressings c/d/i. Safety measures in place. Will continue to monitor.
[2019-08-20] MEDS ORDERED: INSULIN GLARGINE, 100 UNIT/ML CARTRIDGE SQ SCH (22:00)
--- NOTE | 2019-08-20 22:33 | NUR ---
RN NOTE: 2225: Pt c/o 9/10 stabbing chest pain. 2228: Paged Angel Morrison, received order for Morphine 2mg IVP Q4H PRN. Order noted and carried out.
[2019-08-20] MEDS: MORPHINE SULFATE INJ 4 MG/ML DISP.SYRIN IV PRN (22:53)
[2019-08-20] MEDS ORDERED: INSULIN GLARGINE, 100 UNIT/ML CARTRIDGE SQ ONE (23:30)
--- NOTE | 2019-08-20 23:47 | NUR ---
RN NOTE: 2330 dose of lantus nonadministered. Pt received 12 units of lantus at 2200.
[2019-08-21] VITALS (25 sets, daily range): BP systolic 88–131; BP diastolic 27–89
[2019-08-21] MEDS: CEFEPIME 2 GM in IV D5W 100 ML IV SCH ×3 (01:23→17:50)
--- NOTE | 2019-08-21 01:29 | NUR ---
RN NOTE: Called telecommunication operator pharmacy to verify 0100 dose of Solumedrol. Will administer once verified.
--- NOTE | 2019-08-21 02:15 | NUR ---
RN NOTE: Called correspondence review clerk pharmacy again to ask to verify Solumedrol order. Stated will verify. Will administer once verified.
[2019-08-21] MEDS: methylPREDNISolone SOD SUCC 40 MG/ML VIAL IV SCH ×3 (02:30→17:50)
[2019-08-21 04:08] LABS: BASOPHILS # (AUTO) 0.1 /CMM (0.0-0.2); BASOPHILS % (AUTO) 0.5 % (0.0-2.0); EOSINOPHILS % (AUTO) 0.6 % (0.0-6.0); HEMATOCRIT 42 % (39-51); HEMOGLOBIN 14.7 g/dL (13.5-17.5); LYMPHOCYTES # (AUTO) 0.6 /CMM (0.8-4.8); MEAN CORPUSCULAR HGB CONC 35 g/dl (31.0-36.0); MEAN CORPUSCULAR VOLUME 89 fL (80-96); MONOCYTES # (AUTO) 0.4 /CMM (0.1-1.30); NEUTROPHILS # (AUTO) 8.6 /CMM (1.8-8.9); NEUTROPHILS % (AUTO) 88.9 % (43.0-81.0); PLATELET COUNT (AUTO) 392 /CMM (150-450); RED BLOOD CELL COUNT(AUTO) 4.69 MIL/uL (4.5-6.0); WHITE BLOOD COUNT (AUTO) 9.6 K/uL (4.3-11.0)
[2019-08-21 04:16] LABS: CALCIUM, SERUM 8.6 mg/dL (8.5-10.1); CARBON DIOXIDE 23 mmol/L (21-32); CHLORIDE 98 mmol/L (98-107); CREATININE 1.1 mg/dL (0.6-1.3); GLUCOSE 230 mg/dL (74-106); POTASSIUM 4.4 mmol/L (3.5-5.1); SODIUM SERUM 133 mmol/L (136-145); UREA NITROGEN, BLOOD 20 mg/dL (7-18)
[2019-08-21] MEDS: VANCOMYCIN 1.25 GM in IV D5W 250 ML IV SCH (04:56)
[2019-08-21 04:58] LABS: C-REACTIVE PROTEIN 6.9 mg/dL (0.0-0.9); FERRITIN 1304 ng/mL (8-388)
--- NOTE | 2019-08-21 06:37 | NUR ---
RN CLOSING NOTES: Pt resting in bed, easily arousable. A&)x4. On isolation for positive Covid. On high flow O2 at 60LPM at 100%. Tolerating well. No SOB or respiratory distress noted during shift. No acute changes noted during shift. SR on tele monitor. LAC #18 and RH #20 patent and flushing. Dressings c/d/i. All meds administered as ordered. Safety measures in place. Will endorse to AM nurse for DWAINE.
[2019-08-21 08:41] LABS: ABG BASE EXCESS -0.6 mmol/L; ABG PCO2 31.6 mmHg (35.0-45.0); ABG PH 7.464 (7.350-7.450); ABG PO2 72.3 mmHg (75.0-100.0); AaDO2 609.1 mmHg; COHb 0.3 % (0.5-1.5); MetHb 0.1 % (0.0-1.5); O2Hb 94.6 % (94.0-97.0); SITE, ABG Right Radial; VENT MODE, BG HI FLOW NC 55L 100%
[2019-08-21] MEDS ORDERED: INSULIN GLARGINE, 100 UNIT/ML CARTRIDGE SQ SCH ×2 (09:00→22:00)
[2019-08-21] MEDS: PANTOPRAZOLE 40 MG TABLET.DR PO SCH (09:31)
[2019-08-21] MEDS: RANOLAZINE 500 MG TAB.ER.12H PO SCH (09:31)
[2019-08-21] MEDS: ASPIRIN EC 81 MG TABLET.DR PO SCH (09:31)
[2019-08-21] MEDS: ISOSORBIDE MONONITRATE (30MG) 30 MG TAB.SR.24H PO SCH ×2 (09:31→17:51)
[2019-08-21] MEDS: CARVEDILOL 12.5 MG TABLET PO SCH (09:31)
[2019-08-21] MEDS: ENOXAPARIN SODIUM 40 MG/0.4 ML DISP.SYRIN SQ SCH (09:34)
[2019-08-21] MEDS: DOXYCYCLINE 100 MG in IV NS 0.9% 100 ML IV SCH ×2 (10:57→21:21)
[2019-08-21] MEDS: BLOOD SUGAR DIAGNOSTIC 1 EACH STRIP VI SCH ×4 (10:57→21:19)
[2019-08-21] MEDS: INSULIN REGULAR, HUMAN 100 UNIT/ML 3 ML VIAL SQ PRN ×4 (11:41→21:20)
[2019-08-21] MEDS: MORPHINE SULFATE INJ 4 MG/ML DISP.SYRIN IV PRN (12:07)
--- NOTE | 2019-08-21 19:44 | NUR ---
END OF SHIFT NOTE: PT HAD AN UNEVENTFUL SHIFT. LANTUS CHANGED TO BID, AM DOSE GIVEN TODAY. PT AGREED TO LAY PRONE FOR APPROXIMATELY 4-5 HOURS TODAY, RN REMINDED PT THE IMPORTANCE OF LAYING IN THE PRONE POSITION. RN SPOKE TO PT'S NIECE JANETTE 2 TIMES TODAY. FISHER PURSE SEINE INFORMED RN THAT PT WILL BE TRANSFERRED TO [facility] WHEN A BED IS AVAILABLE AND THAT PT'S NIECE HAS AGREED TO THE TRANSFER. FISHER PURSE SEINE STATED THAT [facility] WILL CALL RN WHEN A BED IS AVAILABLE AND A REQUEST FROM THE NIECE THAT SHE BE CALLED WHEN A BED IS AVAILABLE AND WHEN THE TRANSPORTATION HAS BEEN SCHEDULED. NO CALL FROM [facility] OF THE END OF THIS SHIFT. ORDER FOR RADIOLOGY TO PREPARE DISC OF IMAGING DONE AND SPECIAL PROCEDURE TECH WAS COPYING CHART PER ASPHALT SPREADER OPERATOR. PT CHECKED ON HOURLY AND PRN BY NURSING STAFF.
[2019-08-21] MEDS: INSULIN GLARGINE, 100 UNIT/ML CARTRIDGE SQ SCH (21:21)
[2019-08-21] MEDS: ACETAMINOPHEN 325 MG TABLET PO PRN (21:48)
[2019-08-21] MEDS ORDERED: ATORVASTATIN 10 MG TABLET PO SCH (22:00)
--- NOTE | 2019-08-21 22:10 | NUR ---
RN DAMON JARAMILLO ([phone]) PATIENT'S NIECE CALLED AND ASKED FOR UPDATE REGARDING PATIENT. UPDATED ON PATIENT STATUS AND ANSWERED ALL QUESTIONS.
--- NOTE | 2019-08-21 22:18 | NUR ---
RN NOTES KAREY ([phone]) CALLED FROM [facility] AND STATED THEY HAVE AVAILABLE ROOM FOR PATIENT AND ASKING FOR TRANSPORTATION INFORMATION. CHARGE NURSE MADE AWARE. AWAITING FOR RESPONSE.
--- NOTE | 2019-08-21 22:55 | NUR ---
RN NOTES AT 224: KAREY [place] [facility] STATED "THE FROM ICU STATED TO TRANSFER THE PATIENT TOMORROW BEFORE 0700, I WILL TELL PIPE FROM [facility]" CHARGE NURSE MADE AWARE AND PIPE FROM [facility] MADE AWARE AND STATED SHE WILL CALL BACK. AT 2250 PIPE FROM [facility] CALLED BACK AND STATED "THE AMPOULE FILLER AND SEALER TIME TOMORROW WILL BE 0630, I WILL CALL YOU BACK FOR MORE TRANSPORTATION INFORMATION" CHARGE NURSE MADE AWARE.
--- NOTE | 2019-08-21 23:20 | NUR ---
RN NOTES PIPE FROM [facility] STATED PATIENT'S AMBULANCE WILL BE [facility], ETA 0645 AND PHONE NUMBER [phone]. WILL UPDATE CHARGE NURSE AND FAMILY.
[2019-08-22] VITALS (14 sets, daily range): BP systolic 93–128; BP diastolic 45–76
[2019-08-22] MEDS: methylPREDNISolone SOD SUCC 40 MG/ML VIAL IV SCH ×2 (01:02→08:47)
[2019-08-22] MEDS: CEFEPIME 2 GM in IV D5W 100 ML IV SCH ×2 (01:02→08:47)
--- NOTE | 2019-08-22 03:00 | NUR ---
RN NOTES AT 0245, JANETTE (NIECE OF PATIENT) CLARIFIED OKAY TO TRANSFER PATIENT TO [facility]. PAGED DR. NAVARRETE VIA TELEPHONE [phone] AND MADE AWARE THAT NIECE IS OKAY WITH THE TRANSFER. ALSO STATED OKAY TO ORDER DISCHARGE WITH CONTINUE CURRENT CARE.
--- NOTE | 2019-08-22 05:20 | NUR ---
RN DAMON EDEN FROM [facility] ASKED RN TO GIVE REPORT NOW AND STATED "PLEASE GIVE REPORT NOW BEFORE IT GETS BUSY" CHARGE NURSE MADE AWARE. WILL ATTEND TO REQUEST.
--- NOTE | 2019-08-22 05:35 | NUR ---
REPORT GIVEN TO ZOEY HARPER FROM [facility] FOR DWAINE. PHONE NUMBER
--- NOTE | 2019-08-22 05:39 | NUR ---
RN NOTES JANETTE (NIECE OF PATIENT) [phone] MADE AWARE OF [employer] ARCHITECT TIME NOW 8-8:30AM PER COMMERCIAL PEST CONTROL REPRESENTATIVE. WILL CONT TO MONITOR PT CLOSELY.
--- NOTE | 2019-08-22 06:13 | NUR ---
RN NOTES AT 0400, CALLED [facility] REGARDING PATIENT NEEDS ACLS TRANSPORTATION WITH RN AND RT IN THE AMBULANCE DUE TO PATIENT IS ICU STATUS ON HIGH FLOW 55LPM WITH 100% FIO2, HECTOR STATED SHE WILL NEED TO TALK TO COMMERCIAL FOOD INSTRUCTOR REGARDING RN NEEDED IN AMBULANCE. CHARGE NURSE AND COMMERCIAL FOOD INSTRUCTOR MADE AWARE, PROVIDED COMMERCIAL FOOD INSTRUCTOR WITH HECTOR'S PHONE NUMBER . AT 0411, COMMERCIAL FOOD INSTRUCTOR CALLED BACK AND STATED AMBULANCE GRAIN GRADER TIME WILL BE AT [phone]. CHARGE NURSE MADE AWARE.
[2019-08-22 06:29] LABS: BASOPHILS % (AUTO) 0.1 % (0.0-2.0); HEMATOCRIT 39 % (39-51); LYMPHOCYTES # (AUTO) 0.8 /CMM (0.8-4.8); LYMPHOCYTES % (AUTO) 5.4 % (20.0-44.0); MEAN CORPUSCULAR HGB CONC 36 g/dl (31.0-36.0); MEAN CORPUSCULAR VOLUME 89 fL (80-96); MONOCYTES # (AUTO) 0.4 /CMM (0.1-1.30); NEUTROPHILS # (AUTO) 12.8 /CMM (1.8-8.9); NEUTROPHILS % (AUTO) 91.5 % (43.0-81.0); PLATELET COUNT (AUTO) 425 /CMM (150-450); RED BLOOD CELL COUNT(AUTO) 4.39 MIL/uL (4.5-6.0)
--- NOTE | 2019-08-22 06:54 | NUR ---
RN NOTES AT 0640: HECTOR FROM [facility] STATED PATIENT AMBULANCE/TRANSPORTATION CANCELLED DUE TO AMBULANCE UNABLE TO ACCOMMODATE PATIENT WITH HIGH FLOW WITH 55LPM AND WILL NEED TO ASK DR. MILTON FOR RECOMMENDATIONS HOW TO TRANSFER PATIENT WITHOUT HIGH FLOW. CHARGE NURSE MADE AWARE AND STATED TO ENDORSE TO AM RN. PATIENT'S JANETTE FRANCIS UPDATED REGARDING PATIENT AMBULANCE/TRANSPORTATION CANCELLED.
[2019-08-22 06:56] LABS: ALBUMIN 2.8 g/dL (3.4-5.0); BILIRUBIN,TOTAL 0.7 mg/dL (0.2-1.0); CALCIUM, SERUM 8.7 mg/dL (8.5-10.1); POTASSIUM 4.5 mmol/L (3.5-5.1); TOTAL PROTEIN, SERUM 6.9 g/dL (6.4-8.2)
--- NOTE | 2019-08-22 07:30 | NUR ---
RN NOTES PATIENT AWAKE, A/OX4, ABLE TO MAKE NEEDS KNOWN. " WORST TODAY". WITH SHORTNESS OF BREATH BUT IS SATING FINE ON THE MONITOR AT 98% WITH HIGH FLOW OXYGEN AT 100%FIO2 WITH 55LPM. SINUS RHYTHM ON THE MONITOR AT THIS TIME, WITH EPISODES OF BRADYCARDIA PER REPORT. PATIENT WITH NO COMPLAINTS OF PAIN. ENCOURAGE TO CALL FOR HELP AND ASSISTANCE. CALL LIGHT PLACED WITHIN REACH. SRX2 RAISED. BED IN LOW AND LOCKED POSITION. WILL CONTINUE TO MONITOR ACCORDINGLY
--- NOTE | 2019-08-22 07:38 | NUR ---
RN CLOSING NOTES PATIENT RESTING IN BED, A/OX3, ABLE TO MAKE NEEDS KNOWN. NO ACUTE CHANGES THROUGHOUT SHIFT. STILL ON HIGH FLOW 55LPM, FIO2 100%, TOLERATING WELL, SATURATING 96% AT THE MOMENT. REFUSED TO BE ON PRONE POSITION. ALL MD ORDERS ATTENDED, ALL NEEDS ANTICIPATED AND MET. ENDORSED TO AM RN FOR DWAINE.
[2019-08-22] MEDS: CARVEDILOL 12.5 MG TABLET PO SCH (08:07)
[2019-08-22] MEDS: PANTOPRAZOLE 40 MG TABLET.DR PO SCH (08:07)
[2019-08-22] MEDS: RANOLAZINE 500 MG TAB.ER.12H PO SCH (08:08)
[2019-08-22] MEDS: ASPIRIN EC 81 MG TABLET.DR PO SCH (08:08)
[2019-08-22] MEDS: ISOSORBIDE MONONITRATE (30MG) 30 MG TAB.SR.24H PO SCH (08:08)
[2019-08-22] MEDS: BLOOD SUGAR DIAGNOSTIC 1 EACH STRIP VI SCH (08:25)
[2019-08-22] MEDS: *INSULIN REGULAR(HUMULIN R)HUM 100 UNIT/ML VIAL SQ PRN (08:27)
[2019-08-22] MEDS: INSULIN GLARGINE, 100 UNIT/ML CARTRIDGE SQ SCH (08:28)
[2019-08-22] MEDS: ENOXAPARIN SODIUM 40 MG/0.4 ML DISP.SYRIN SQ SCH (08:29)
[2019-08-22 08:41] LABS: C-REACTIVE PROTEIN 2.6 mg/dL (0.0-0.9)
[2019-08-22] MEDS: DOXYCYCLINE 100 MG in IV NS 0.9% 100 ML IV SCH (08:47)
--- NOTE | 2019-08-22 10:00 | NUR ---
RN NOTES SPOKE TO DR. NAVARRETE, WITH ORDERS TO PLACE PATIENT ON NON REBREATHER MASK TO KEEP SPO2 TO >92%. ORDER NOTED AND CARRIED OUT 1030> SEEN AND EXAMINED BY DR. MILTON WITH ORDER FOR ABG. ORDER NOTED AND CARRIED OUT
[2019-08-22 10:33] LABS: ALBUMIN 2.8 g/dL (3.4-5.0); BILIRUBIN,DIRECT 0.1 mg/dL (0.0-0.2); BILIRUBIN,TOTAL 0.7 mg/dL (0.2-1.0)
[2019-08-22 10:50] LABS: ABG BASE EXCESS -4.2 mmol/L; ABG OXYGEN SATURATION 92.4 % (92.0-98.5); ABG PCO2 31.6 mmHg (35.0-45.0); ABG PH 7.406 (7.350-7.450); ABG PO2 60.9 mmHg (75.0-100.0); AaDO2 620.5 mmHg; COHb 0.1 % (0.5-1.5); MetHb 0.5 % (0.0-1.5); O2Hb 91.8 % (94.0-97.0); SITE, ABG Right Radial; VENT MODE, BG non rebreather
--- NOTE | 2019-08-22 11:20 | NUR ---
pt. found on non rebreather @ 15 lpm o2 flow with spo2 96 - 98% rn aware on changes. Addendum: 08/22/19 at 1120 by ANI BROWN RT Amended: Links added.
--- NOTE | 2019-08-22 13:03 | NUR ---
RN NOTES PATIENT WHEELED OUT OF THE UNIT VIA GURNEY ACCOMPANIED BY EMT AND RN.
--- NOTE | 2019-08-22 14:36 | NUR ---
RN NOTES OFFERED TO CLEAN PATIENT AND TO FIX LEAD, PATIENT "NOT RIGHT NOW". WILL OFFER AGAIN IN A WHILE Addendum: 08/22/19 at 1438 by DEVAN BYRD RN DISREGARD NOTES. FOR ANOTHER PATIENT
[2019-08-22] MEDS ORDERED: methylPREDNISolone SOD SUCC 40 MG/ML VIAL IV SCH (17:00)
== END 2019-08-22 13:09 | disposition short-term general hospital (02) | DRG 177 ==
LOC: ER 16:39 → TELE1 22:09 → TELE-TD 08-19 13:16 → ICUOV 08-19 14:39
PROVIDERS: ADMIT Internal Medicine; ATTEND Internal Medicine
DX: U07.1 COVID-19 (principal); J12.89 Other viral pneumonia; J96.91 Respiratory failure, unspecified with hypoxia; E87.1 Hypo-osmolality and hyponatremia; E46 Unspecified protein-calorie malnutrition; J98.11 Atelectasis; R07.9 Chest pain, unspecified; I25.10 Atherosclerotic heart disease of native coronary artery without angina pectoris; I25.2 Old myocardial infarction; E78.5 Hyperlipidemia, unspecified; Z95.5 Presence of coronary angioplasty implant and graft; Z96.651 Presence of right artificial knee joint; I10 Essential (primary) hypertension; Z79.82 Long term (current) use of aspirin; Z79.899 Other long term (current) drug therapy; Z79.84 Long term (current) use of oral hypoglycemic drugs; Z83.3 Family history of diabetes mellitus; E11.65 Type 2 diabetes mellitus with hyperglycemia; I70.0 Atherosclerosis of aorta; Y95 Nosocomial condition
CPT/HCPCS: 36415; 36600; 71045-TC; 80048-TC; 80053-TC; 80061-TC; 80076-TC; 80202-TC; 82728-TC; 82803-TC; 82962-TC; 83615-TC; 83735-TC; 83880; 84484-TC; 85025-TC; 85378-TC; 86140-TC; 86480; 87040-TC; 87070-TC; 87081-TC; 87806; 87899; 94762-TC; G0378; J0456; J0692; J0696; J1650; J1815; J2270; J2405; J2920; J3262; J3370; J3490; J7030; J7050; J7060; Q0163